=== PATIENT | female | born 1965 | race Caucasian/White ===

== ENCOUNTER 2018-03-07 10:56 | Observation (INO) | payer BC, OTHER ==
--- NOTE | 2018-03-07 11:57 | RAD ---
CHEST 1 VIEW: INDICATION: History of chest pain. IMPRESSION: No acute cardiopulmonary abnormality. The examination is unchanged from a comparison dated 07/08/2012. POS: [facility]
[2018-03-07 12:01] LABS: #Basophils 0.1 thou/uL (0.0-0.2); #Eosinphils 0.2 thou/uL (0.0-0.7); #Lymphocytes 2.9 thou/uL (1.20-3.40); #Monocytes 0.8 thou/uL (0.11-0.59); %Basophils 0.7 % (0.0-1.0); %Eosinophils 1.6 % (0.0-10.0); %Lymphocytes 29.3 % (21.0-51.0); %Monocytes 7.6 % (0.0-10.0); %Neutrophils 60.8 % (42.0-75.0); Hemoglobin 12.7 g/dL (12.0-16.0); Mean Corpuscular HGB CONC 33.3 g/dL (32.0-36.0); Mean Corpuscular Hemoglobin 31.7 pg (27.0-31.0); Mean Corpuscular Volume 95.3 fL (78.0-98.0); Mean Platelet Volume 7.4 fL (7.4-10.4); Platelet Count 293 thou/uL (130-400); RBC Distribution Width 12.4 % (11.5-14.5); Red Blood Cell (RBC) Count 3.99 mill/uL (4.20-5.40); White Blood Cell (WBC) Count 9.9 thou/uL (4.8-10.8)
[2018-03-07 12:31] LABS: ALT (SGPT) 10 U/L (8-55); AST (SGOT) 15 U/L (5-34); Albumin 4.6 g/dL (3.5-5.0); Alkaline Phosphatase 61 U/L (40-150); Anion Gap 11 mmol/L (10-20); BUN (Urea Nitrogen) 10 mg/dL (9.8-20.1); Bilirubin, Total 0.5 mg/dL (0.2-1.2); CK (CPK) 79 U/L (29-168); Calc. Creatinine Clearance 0 mL/min (70-130); Calcium 9.7 mg/dL (7.8-10.44); Carbon Dioxide 26 mmol/L (22-29); Chloride 101 mmol/L (98-107); Estimated GFR-MDRD 78; Globulin 2.4 g/dL (2.4-3.5); Glucose 86 mg/dL (70-105); Potassium 4.2 mmol/L (3.5-5.1); Sodium 134 mmol/L (136-145)
[2018-03-07] MEDS ORDERED: Nitroglycerin 2% Ointment 1 INCH/1 GM Packet ONE (12:40)
--- NOTE | 2018-03-07 15:29 | HP ---
PRIMARY CARE PHYSICIAN: [facility] Call Admission. REASON FOR ADMISSION: Chest pain. HISTORY OF PRESENT ILLNESS: A 53-year-old female, who has underlying history of coronary artery disease with a history of CABG, who presented to emergency room for complaint of chest pain. The patient reports that this morning she was experiencing crampy pressure-like sensation in her chest, which was substernal in location, radiated to left arm, associated with nausea and mild shortness of breath, lasted for about 2-3 minutes, subsided by itself, but subsequently, she was having recurrent similar type of chest discomfort, which was pretty much unusual for her. She used to get dull chest pain periodically with exertion, which subsides by itself, but this pain was little bit different from her baseline dull pain. She continued to smoke about one pack per day. She denies any palpitation, orthopnea, PND, or leg swelling. She denies any fever or chills. She denies any UTI symptoms. She denies any constipation, diarrhea, melena, or hematochezia. In the emergency room, EKG showed LBBB, which was pretty much unchanged from previous. The patient had routine blood test including cardiac enzymes that are negative. Chest x-ray was normal. The patient is being admitted for chest pain evaluation. PAST MEDICAL HISTORY: Hypertension, dyslipidemia, coronary artery disease, history of CA. PAST SURGICAL HISTORY: CABG x5, bilateral iliac bypass grafting. PAST PSYCHIATRIC HISTORY: Reviewed and negative. SOCIAL HISTORY: The patient is . She smokes about one pack per day. She denies any alcohol or other illicit drug abuse. FAMILY HISTORY: No family history of coronary artery disease, stroke, or cancer. ALLERGIES: ERYTHROMYCIN. CURRENT HOME MEDICATIONS: 1. Aspirin 81 mg daily. 2. Multivitamin one tablet daily. 3. Toprol 12.5 mg p.o. daily. 4. Imdur 60 mg daily. 5. Plavix 75 mg p.o. daily. 6. Amlodipine 2.5 mg daily. 7. Lipitor 40 mg p.o. at bedtime. 8. Calcium with vitamin D 1 tablet p.o. daily. 9. Fish oil one capsule daily. 10. Losartan 25 mg daily. EMERGENCY ROOM COURSE: The patient has received aspirin and nitroglycerin patch. REVIEW OF SYSTEMS: CONSTITUTIONAL: Negative for weight loss or gain, ability to conduct usual activities. SKIN: Negative for rash, itching. EYES: Negative for double vision, pain. ENT/MOUTH: Negative for nose bleeding, neck stiffness, pain, tenderness. CARDIOVASCULAR: Negative for palpitations, dyspnea on exertion, orthopnea. RESPIRATORY: Negative for shortness of breath, wheezing, cough, hemoptysis, fever or night sweats. GASTROINTESTINAL: Negative for poor appetite, abdominal pain, heartburn, nausea, vomiting, constipation, or diarrhea. GENITOURINARY: Negative for urgency, frequency, dysuria, nocturia. MUSCULOSKELETAL: Negative for pain, swelling. NEUROLOGIC/PSYCHIATRIC: Negative for anxiety, depression. ALLERGY/IMMUNOLOGIC: Negative for skin rash, bleeding tendency. Please see my HPI for pertinent positive and negative. All other review of systems reviewed and negative except as mentioned in HPI. PHYSICAL EXAMINATION: VITAL SIGNS: Currently, blood pressure 119/74, pulse 73, respiratory rate 16, temperature 98.6, saturation 100% on room air. Weight 61.2 kg. GENERAL: The patient is currently alert, oriented, in no acute distress. HEENT: Head normocephalic and atraumatic. Eyes: Pupils round, reactive to light. Extraocular muscle intact. ENT: Oropharynx within normal limits. Moist mucous membranes. No oral lesion. No pharyngeal erythema. No exudate. NECK: Supple. No JVD. No thyromegaly. No carotid bruit. No jugular venous distention. LUNGS: Clear to auscultation without any rhonchi or rales. CARDIAC: S1 and S2 regular without any murmur. ABDOMEN: Soft and benign without any tenderness. EXTREMITIES: No edema. NEUROLOGIC: Nonfocal examination. SIGNIFICANT LABORATORY DATA: EKG is showing LBBB. CBC: WBC 9.9, hemoglobin 12.7, platelet 293. BMP: Sodium 134, potassium 4.2, chloride 101, carbon dioxide 26, anion gap 11, BUN 10, creatinine 0.77, glucose 86, calcium 9.7. LFT: AST 15, ALT 10, alkaline phosphatase 61, albumin 4.6. Cardiac enzyme negative. BNP 125.4. ASSESSMENT AND PLAN: 1. Acute angina. The patient's description is atypical angina. Her cardiac enzymes are negative. Her EKG is showing left bundle branch block. At this point, the patient will need observation. We will do serial cardiac enzyme x3. If cardiac enzymes are negative, then this patient will need a stress test tomorrow morning for prognostic reason. We will obtain echocardiography to assess ejection fraction and other structural abnormality. We will check lipid profile tomorrow morning. Meanwhile, we will continue with aspirin 325 mg p.o. daily. If blood pressure permits, then we will continue nitroglycerin patch q.8 hourly. We will also continue amlodipine 2.5 mg p.o. daily, Lipitor 40 mg p.o. at bedtime, Plavix 75 mg p.o. daily and losartan 12.5 mg p.o. daily. We will hold Toprol-XL because we are going to do stress test tomorrow. Healthy lifestyle measure discussed with the patient. 2. Coronary artery disease with a history of coronary artery bypass graft. Currently, the patient is on medical therapy, which is pretty much optimal medical therapy with aspirin, Plavix, statin, beta-abena and ARB. 3. Cardiomyopathy. We will check echocardiography to assess ejection fraction and other structural abnormality. Currently, the patient is euvolemic. 4. Dyslipidemia. Check lipid profile tomorrow and continue Lipitor 40 mg p.o. at bedtime. 5. Tobacco abuse disorder. Smoking cessation counseling given and we will provide nicotine patch while in hospital. 6. Deep venous thrombosis prophylaxis not needed because we are expecting discharge in 24 hours. 7. Gastrointestinal prophylaxis. Pepcid 20 mg p.o. b.i.d. CODE STATUS: The patient is full code. The patient's is surrogate decision maker. DISPOSITION PLAN: Based on stress test and echocardiography result. Plan of care discussed with the patient and her at bedside in the emergency room. Job ID: [id number]
[2018-03-07] MEDS ORDERED: Calcium Carbonate 500 MG ChewTAB PO PRN (16:27)
[2018-03-07] MEDS ORDERED: Ondansetron PF 4 MG/2 ML Vial IVP PRN (16:27)
[2018-03-07] MEDS ORDERED: Cepastat Lozenges 1 LOZ PO PRN (16:27)
[2018-03-07] MEDS ORDERED: Diabetic Tussin 200 MG/10 ML UDCUP PO PRN (16:27)
[2018-03-07] MEDS ORDERED: Acetaminophen 325 MG TAB PO PRN (16:27)
[2018-03-07] MEDS ORDERED: Eucerin (Mineral Oil/Petrolatum,White) 30 gm Jar TOP PRN (16:27)
[2018-03-07] MEDS ORDERED: Bisacodyl 5 MG TAB PO PRN (16:27)
[2018-03-07] MEDS ORDERED: Zolpidem Tartrate 5 MG TAB PO PRN (16:27)
[2018-03-07] MEDS ORDERED: Loratadine 10 MG TAB PO PRN (16:27)
[2018-03-07] MEDS ORDERED: Senokot S 8.6-50 MG TAB PO PRN (16:27)
[2018-03-07] MEDS ORDERED: Artificial Tears 18 DROP/0.9 ML EA EYE PRN (16:27)
[2018-03-07] MEDS ORDERED: Bisacodyl 10 MG SUPP PR PRN (16:27)
[2018-03-07] MEDS ORDERED: HYDROcodone/Acetaminophen 5/325 mg Tablet PO PRN (16:27)
[2018-03-07] MEDS ORDERED: Ondansetron ODT 4 MG TAB PO PRN (16:27)
[2018-03-07] MEDS ORDERED: Sodium Chloride 0.65% Nasal 44 ML BOT EA NARE PRN (16:27)
[2018-03-07] MEDS ORDERED: Nitroglycerin 0.4 MG TAB (25 Tab Bottle) PO PRN (16:27)
[2018-03-07] MEDS ORDERED: Loperamide HCl 2 MG CAP PO PRN (16:27)
[2018-03-07] MEDS ORDERED: hydrALAZINE 20 MG/ML VIAL SLOW IVP PRN (16:27)
[2018-03-07 17:20] VITALS: BMI 23.9
[2018-03-07] MEDS: Calcium Carbonate + Vit D 1 TAB PO SCH (18:32)
[2018-03-07] MEDS: Atorvastatin Calcium 40 MG TAB PO SCH (20:45)
[2018-03-07] MEDS: Famotidine 20 MG TAB PO SCH (20:45)
[2018-03-07] MEDS: Nitroglycerin 2% Ointment 1 INCH/1 GM Packet TOP SCH (20:45)
[2018-03-07] MEDS ORDERED: Enoxaparin Sodium 60 MG/0.6 ML SYRINGE SC SCH (21:00)
[2018-03-08] MEDS: Nitroglycerin 2% Ointment 1 INCH/1 GM Packet TOP SCH ×3 (04:41→22:50)
[2018-03-08 05:59] LABS: Cardiac Risk 2.7 (Less than 4.5)
--- NOTE | 2018-03-08 08:34 | CON ---
DATE OF CONSULTATION: HISTORY OF PRESENT ILLNESS: The patient is a 53-year-old woman with a history of coronary artery disease, who presents with recurrent chest discomfort. The patient has a long history of coronary artery disease. In 2009, she underwent coronary artery bypass surgery. The patient had a RUFFIN placed to the LAD, saphenous vein graft to diagonal, obtuse marginal branch and to the right coronary artery. The patient subsequently underwent a followup catheterization in January 2010. She was found to have a patent graft to the RUFFIN, patent graft to the OM, an occluded diagonal graft, and a patent graft to the RCA and posterior descending artery. The patient subsequently has continued to smoke. She was followed up at [facility] for several years. She has apparently had several stents placed at that hospital. The patient most recently was seen in a clinic a few months ago with substernal chest discomfort. She was scheduled to undergo a stress test. The patient presented to the emergency room with a left-sided chest pain that radiated to her left shoulder. The patient took several nitroglycerin tablets with resolution of her chest. She reports her chest pain has been subsequently intermittent. She denies any present discomfort. PAST MEDICAL HISTORY: 1. Coronary artery disease. 2. Diabetes mellitus. 3. Hypertension. 4. Hyperlipidemia. PAST SURGICAL HISTORY: Coronary artery bypass graft surgery, status post aortobiiliac bypass in 2009. SOCIAL HISTORY: The patient continues to smoke. MEDICATIONS ON ADMISSION: Losartan 12.5 daily, Lipitor 20 at bedtime, Toprol-XL 12.5 daily, Imdur 60 q.a.m., aspirin 81 daily, Norvasc 2.5 daily, Plavix 75 daily. REVIEW OF SYSTEMS: Ten-point system otherwise unremarkable. PHYSICAL EXAMINATION: GENERAL: This is a thin woman in no acute distress. VITAL SIGNS: Blood pressure 111/75. NECK: No jugular venous distention. LUNGS: Clear to auscultation. HEART: Regular rate and rhythm. Normal S1, S2. No murmurs. ABDOMEN: Nondistended. EXTREMITIES: Showed no edema. VASCULAR: Radial pulses are 2+. LABORATORY DATA: Sodium 134, potassium 4.2, chloride 102, bicarbonate 26, BUN 10, creatinine 0.77. Troponin less than 0.01. White blood cell count 3.9, hemoglobin 12.6, hematocrit 38.0, and platelets 293. IMAGING STUDIES: EKG revealed normal sinus rhythm with left bundle-branch block. IMPRESSION: 1. Unstable angina. 2. History of coronary artery bypass graft surgery. 3. Hypertension. 4. Dyslipidemia. 5. History of aortobifemoral bypass. 6. Tobacco abuse. This patient presents with recurrent chest discomfort suggestive of angina. The patient will undergo further evaluation during this hospitalization. We will start the patient on Lovenox. We will continue the patient on higher dose Lipitor. We will follow this patient with you through her hospitalization. Job ID: [id number] MTDD
[2018-03-08] MEDS ORDERED: Communication Order-Pharmacy FS SCH (08:45)
[2018-03-08] MEDS ORDERED: Sodium Chloride 0.9% 1,000 ML IV SCH ×2 (08:45→16:49)
[2018-03-08] MEDS ORDERED: Nicotine 21 MG PATCH TD SCH (09:00)
[2018-03-08] MEDS: Aspirin 325 MG TAB PO SCH (09:16)
[2018-03-08] MEDS: Famotidine 20 MG TAB PO SCH ×2 (09:16→20:22)
[2018-03-08] MEDS: Fish Oil 1,000 MG CAP PO SCH (09:16)
[2018-03-08] MEDS: Losartan 25 MG TAB PO SCH (09:18)
[2018-03-08] MEDS: Calcium Carbonate + Vit D 1 TAB PO SCH ×2 (09:19→18:23)
[2018-03-08] MEDS: Amlodipine 5 MG TAB PO SCH (09:20)
[2018-03-08] MEDS: Clopidogrel Bisulfate 75 MG TAB PO SCH (09:21)
[2018-03-08] MEDS: Multivitamin W/ Minerals 1 TAB PO SCH (09:21)
--- NOTE | 2018-03-08 10:47 | PDOC.PN ---
- Subjective Encounter Start Date: 03/08/18 Encounter Start Time: 07:20 -: old records requested/rev Patient seen and examined. No new complaints. No overnight events - Objective Resuscitation Status - Order Detail: 03/07/18 14:11 Resuscitation Status Routine Resuscitation Status: FULL: Full Resuscitation MAR Reviewed: Yes Vital Signs & Weight: Vital Signs (12 hours) Temp Pulse Resp BP Pulse Ox 03/08/18 09:20 72 03/08/18 07:40 97.9 F 72 16 134/66 99 03/08/18 04:29 98.1 F 60 16 130/72 97 03/08/18 00:05 98.2 F 71 16 125/73 100 Weight Weight 139 lb 4.8 oz I&O: 03/07/18 03/08/18 03/09/18 06:59 06:59 06:59 Intake Total 1020 Balance 1020 Result Diagrams: 03/07/18 11:45 03/07/18 11:45 EKG Reviewed by me: Yes (nsr) Phys Exam - Physical Examination Constitutional: NAD HEENT: PERRLA, moist MMs, sclera anicteric Neck: no JVD, supple Respiratory: no wheezing, no rales, no rhonchi Cardiovascular: RRR, no significant murmur, no rub Gastrointestinal: soft, non-tender, no distention, positive bowel sounds Musculoskeletal: no edema, pulses present Neurological: non-focal, normal sensation, moves all 4 limbs Lymphatic: no nodes Psychiatric: normal affect, A&O x 3 Skin: no rash, normal turgor Dx/Plan (1) Chest pain Code(s): R07.9 - CHEST PAIN, UNSPECIFIED Status: Acute (2) CAD (coronary artery disease) Code(s): I25.10 - ATHSCL HEART DISEASE OF [place] CORONARY ARTERY W/O ANG PCTRS Status: Chronic (3) Dyslipidemia Code(s): E78.5 - HYPERLIPIDEMIA, UNSPECIFIED Status: Chronic (4) H/O cardiomyopathy Code(s): Z86.79 - PERSONAL HISTORY OF OTHER DISEASES OF THE CIRCULATORY SYSTEM Status: Chronic (5) Hypertension Code(s): I10 - ESSENTIAL (PRIMARY) HYPERTENSION Status: Chronic (6) Tobacco abuse Code(s): Z72.0 - TOBACCO USE Status: Chronic - Plan cont current plan of care * cardiac cath as per cardiology * echo done * discharge based on cath result * medication reviewed as below * symptomatic treatment. Review of Systems - Review of Systems ENT: negative: Ear Pain, Ear Discharge, Nose Pain, Nose Discharge, Nose Congestion, Mouth Pain, Mouth Swelling, Throat Pain, Throat Swelling, Other Respiratory: negative: Cough, Dry, Shortness of Breath, Hemoptysis, SOB with Excertion, Pleuritic Pain, Sputum, Wheezing Cardiovascular: negative: chest pain, palpitations, orthopnea, paroxysmal nocturnal dyspnea, edema, light headedness, other Gastrointestinal: negative: Nausea, Vomiting, Abdominal Pain, Diarrhea, Constipation, Melena, Hematochezia, Other Genitourinary: negative: Dysuria, Frequency, Incontinence, Hematuria, Retention , Other Musculoskeletal: negative: Neck Pain, Shoulder Pain, Arm Pain, Back Pain, Hand Pain, Leg Pain, Foot Pain, Other Skin: negative: Rash, Lesions, [place], Bruising, Other - Medications/Allergies Allergies/Adverse Reactions: Allergies Allergy/AdvReac Type Severity Reaction Status Date / Time erythromycin base Allergy Unknown Verified 03/07/18 16:54 [Erythromycin Base] Medications: Current Medications Acetaminophen (Tylenol) 650 mg PO Q4H PRN PRN Reason: Headache/Fever/Mild Pain (1-3) Hydrocodone Bitart/Acetaminophen ([employer] 5/325) 1 tab PO Q4H PRN PRN Reason: Moderate Pain (4-6) Albuterol/Ipratropium (Duoneb) 3 ml NEB C6CH-LE [facility] Albuterol/Ipratropium (Duoneb) 3 ml NEB ONE [facility] Stop: 03/08/18 11:00 Amlodipine Besylate (Norvasc) 2.5 mg PO DAILY [facility] Last Admin: 03/08/18 09:20 Dose: 2.5 mg Artificial Tears (Tears Naturale) 2 drop EA EYE PRN PRN PRN Reason: Dry Eyes Aspirin (Aspirin) 81 mg PO DAILY [facility] Last Admin: 03/08/18 09:16 Dose: 81 mg Atorvastatin Calcium (Lipitor) 40 mg PO HS [facility] Last Admin: 03/07/18 20:45 Dose: 40 mg Bisacodyl (Dulcolax) 10 mg [place] DAILYPRN PRN PRN Reason: Constipation Bisacodyl (Dulcolax) 10 mg PO DAILYPRN PRN PRN Reason: Constipation Calcium Carbonate (Tums) 1,000 mg PO Q4H PRN PRN Reason: Heartburn or Indigestion Calcium/Vitamin D (Caltrate 600 + Vit D) 1 tab PO BID-[facility] Last Admin: 03/08/18 09:19 Dose: 1 tab Clopidogrel Bisulfate (Plavix) 75 mg PO DAILY [facility] Last Admin: 03/08/18 09:21 Dose: 75 mg Famotidine (Pepcid) 20 mg PO BID [facility] Last Admin: 03/08/18 09:16 Dose: Not Given Fish Oil (Fish Oil) 1,000 mg PO DAILY [facility] Last Admin: 03/08/18 09:16 Dose: 1,000 mg Guaifenesin (Robitussin Sf) 200 mg PO Q4H PRN PRN Reason: Cough Hydralazine HCl (Apresoline) 10 mg SLOW IVP Q4H PRN PRN Reason: SBP > 180 and HR < 70 Sodium Chloride (Normal Saline 0.9%) 1,000 mls @ 100 mls/hr IV .Q10H [facility] Iron/Minerals/Multivitamins (Theragran M) 1 tab PO DAILY [facility] Last Admin: 03/08/18 09:21 Dose: 1 tab Loperamide HCl (Imodium) 2 mg PO PRN PRN PRN Reason: Diarrhea/Loose Stools Loratadine (Claritin) 10 mg PO DAILYPRN PRN PRN Reason: Sinus Symptoms Losartan Potassium (Cozaar) 12.5 mg PO DAILY [facility] Last Admin: 03/08/18 09:18 Dose: 12.5 mg Mineral Oil/White Petrolatum (Eucerin Cream) 0 gm TOP BIDPRN PRN PRN Reason: Dry Skin Miscellaneous Information (Communication Order-Pharmacy) 0 each FS ONE [facility] Stop: 03/08/18 21:00 Nicotine (Nicoderm Patch) 21 mg TD DAILY [facility] Last Admin: 03/08/18 09:22 Dose: Not Given Nitroglycerin (Nitrostat) 0.4 mg PO Q5MIN PRN PRN Reason: Chest Pain Nitroglycerin (Nitro-Bid 2% Ointment) 0.5 inch TOP Q8HR [facility] Last Admin: 03/08/18 04:41 Dose: Not Given Ondansetron HCl (Zofran Odt) 4 mg PO Q6H PRN PRN Reason: Nausea/Vomiting Ondansetron HCl (Zofran) 4 mg IVP Q6H PRN PRN Reason: Nausea/Vomiting Senna/Docusate Sodium (Senokot S) 2 tab PO BID PRN PRN Reason: Constipation Sodium Chloride ([place] Nasal [place] 0.65%) 0 ml EA NARE QIDPRN PRN PRN Reason: Nasal Congestion Throat Lozenges (Cepastat Lozenges) 1 shireen PO Q2H PRN PRN Reason: Sore Throat Zolpidem Tartrate (Ambien) 5 mg PO HSPRN PRN PRN Reason: Insomnia
[2018-03-08] MEDS ORDERED: Iopamidol 370 76% 100 ML VIAL ONE (13:20)
[2018-03-08] MEDS ORDERED: Heparin 10,000 UNITS/1 ML VIAL ONE (14:39)
[2018-03-08] MEDS ORDERED: Fentanyl 100 MCG/2 ML VIAL ONE (15:45)
[2018-03-08] MEDS ORDERED: Midazolam HCl 2 mg/2 ml Vial ONE (15:46)
[2018-03-08] MEDS ORDERED: Nitroglycerin 100MG/250ML BOT 250 ML ONE (16:11)
[2018-03-08] MEDS ORDERED: Protamine Sulfate 50 MG/5 ML VIAL ONE (16:27)
[2018-03-08] MEDS ORDERED: traMADol HCl 50 MG TAB PO PRN (16:47)
[2018-03-08] MEDS ORDERED: Nitroglycerin 0.4 MG TAB (25 Tab Bottle) SL PRN (16:47)
[2018-03-08] MEDS ORDERED: Acetaminophen/Codeine 30-300mg Tablet PO PRN ×2 (16:47)
[2018-03-08] MEDS ORDERED: Sodium Chloride 0.9% 200 ML IV SCH (17:00)
[2018-03-08] MEDS: Atorvastatin Calcium 40 MG TAB PO SCH (20:18)
[2018-03-09 04:16] VITALS: TEMP 98.5
[2018-03-09] MEDS: Nitroglycerin 2% Ointment 1 INCH/1 GM Packet TOP SCH (06:55)
[2018-03-09 07:53] VITALS: BP 122/66
[2018-03-09] MEDS: Losartan 25 MG TAB PO SCH (07:57)
[2018-03-09] MEDS: Fish Oil 1,000 MG CAP PO SCH (07:57)
[2018-03-09] MEDS: Famotidine 20 MG TAB PO SCH (07:58)
[2018-03-09] MEDS: Amlodipine 5 MG TAB PO SCH (07:58)
[2018-03-09] MEDS: Multivitamin W/ Minerals 1 TAB PO SCH (07:58)
[2018-03-09] MEDS: Calcium Carbonate + Vit D 1 TAB PO SCH (07:58)
[2018-03-09] MEDS: Aspirin 325 MG TAB PO SCH (07:58)
[2018-03-09] MEDS: Clopidogrel Bisulfate 75 MG TAB PO SCH (07:58)
--- NOTE | 2018-03-09 10:30 | PDOC.CTH ---
Cardiology Progress Note - Subjective No overnight events. Pain free. - Objective Vital Signs Temp Pulse Resp BP Pulse Ox 03/09/18 07:24 98 03/09/18 07:21 117 H 16 03/09/18 07:20 98.5 F 92 20 122/66 96 03/09/18 04:13 98.5 F 79 18 122/60 100 03/09/18 00:35 83 12 96 03/08/18 23:14 98.3 F 80 18 138/65 96 Weight 143 lb 14.4 oz 03/08/18 03/09/18 03/10/18 06:59 06:59 06:59 Intake Total 1020 810 Balance 1020 810 - Physical Examination General/Neuro: alert & oriented x3 Neck: no JVD present Lungs: CTA Abdomen: NT/ND - Telemetry Telemetry Rhythm: SR - Labs Result Diagrams: 03/07/18 11:45 03/07/18 11:45 Troponin/CKMB Troponin I Less than 0.010 ng/mL (< 0.028) 03/07/18 17:35 - Assessment/Plan 1. CAD s/p CABG and graft failure 2. Tobacco Abuse Pain free overnight. Cath with stable findings as compared to 2015. Discussed smoking cessation. Add Ranexa 500mg BID per Dr. Colon. F/U in 2-3 weeks as outpatient.
--- NOTE | 2018-03-09 10:56 | DIS ---
DATE OF ADMISSION: 03/07/2018 DATE OF DISCHARGE: 03/09/2018 PRIMARY CARE PHYSICIAN: [facility] Call admission. DISCHARGE DISPOSITION: Home. PRIMARY DISCHARGE DIAGNOSIS: Unstable angina. SECONDARY DISCHARGE DIAGNOSES: Coronary artery disease, dyslipidemia, cardiomyopathy, hypertension, tobacco abuse disorder. PRIMARY PROCEDURE/OPERATION: Cardiac catheterization was performed by Dr. Colon. The patient does have [place] three-vessel coronary artery disease. She has patent LAD stent, 2/4 bypass grafts were patent, good ventricular function noted. SIGNIFICANT LABORATORY DATA: WBC 9.9, hemoglobin 12.7, platelet 293. Sodium 134, potassium 4.2, BUN 10, creatinine 0.77. LFT normal. Cardiac enzyme negative. LDL 87. DISCHARGE MEDICATIONS: 1. Amlodipine 2.5 mg daily. 2. Aspirin 81 mg p.o. daily. 3. Lipitor 20 mg p.o. daily. 4. Calcium with vitamin D one tablet p.o. daily. 5. Plavix 75 mg p.o. daily. 6. Coenzyme Q10 one tablet daily. 7. Imdur 60 mg daily. 8. Losartan 12.5 mg daily. 9. Toprol-XL 12.5 mg daily. 10. Multivitamin one tablet daily. 11. Ranexa 500 mg p.o. b.i.d. CONTRAINDICATION: None. CODE STATUS: Full code. 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 Colon was following while in hospital. TEST RESULT PENDING ON DISCHARGE: None. ALLERGIES: ERYTHROMYCIN. DISCHARGE PLAN: Posthospital, the patient will follow up with primary care physician, Dr. Colon as instructed. HOSPITAL COURSE: A 53-year-old female with above-mentioned medical problem, who was having recurrent anginal pain at home on the day of admission. Her electrocardiogram was unremarkable. Her chest x-ray was normal. Her routine blood test including cardiac enzymes was negative. The patient was admitted to observation floor. Cardiology was consulted from the emergency room. Cardiology decided to do cardiac cath. The patient was found with a 2/4 patent graft and she has underlying [place] coronary artery disease and a patent LAD stent. During this admission, she was treated medically including the Lovenox. Subsequently on discharge, we added Ranexa medication, prescription for Ranexa sent to the pharmacy. I have seen and examined this patient at bedside today, plan of care discussed with her in detail. The patient's review of systems reviewed and negative. PHYSICAL EXAMINATION: VITAL SIGNS: Currently temperature 98.5, pulse 92, respiratory rate 20, saturation 96%, blood pressure 122/66. Weight 143 pounds. GENERAL: The patient is alert, oriented, in no acute distress. HEENT: Head; normocephalic, atraumatic. Eyes; pupils round, reactive to light. Extraocular muscle intact. LUNGS: Clear to auscultation without any rhonchi or rales. CARDIAC: S1, S2. Regular without any murmur. ABDOMEN: Soft and benign. EXTREMITIES: No edema. NEUROLOGIC: Nonfocal examination. The patient is medically stable for discharge today. Job ID: [id number]
== END 2018-03-09 11:02 | disposition home or self-care (01) ==
LOC: ERS 10:56 → 2SW 16:08
PROVIDERS: ADMIT Internal Medicine; ATTEND Internal Medicine
PROC: 4A023N7 Measurement of Cardiac Sampling and Pressure, Left Heart, Percutaneous Approach (ICD-10-PCS; principal; 2018-03-08)
PROC: B2111ZZ Fluoroscopy of Multiple Coronary Arteries using Low Osmolar Contrast (ICD-10-PCS; 2018-03-08)
PROC: B2131ZZ Fluoroscopy of Multiple Coronary Artery Bypass Grafts using Low Osmolar Contrast (ICD-10-PCS; 2018-03-08)
DX: I25.110 Atherosclerotic heart disease of native coronary artery with unstable angina pectoris (principal); I25.710 Atherosclerosis of autologous vein coronary artery bypass graft(s) with unstable angina pectoris; I25.82 Chronic total occlusion of coronary artery; F17.210 Nicotine dependence, cigarettes, uncomplicated; I42.9 Cardiomyopathy, unspecified; E78.5 Hyperlipidemia, unspecified; I25.2 Old myocardial infarction; E11.9 Type 2 diabetes mellitus without complications; I10 Essential (primary) hypertension; Z79.82 Long term (current) use of aspirin; Z79.02 Long term (current) use of antithrombotics/antiplatelets; Z79.899 Other long term (current) drug therapy; Z88.8 Allergy status to other drugs, medicaments and biological substances; Z95.1 Presence of aortocoronary bypass graft; Z95.820 Peripheral vascular angioplasty status with implants and grafts
CPT/HCPCS: 36415; 71045; 80053; 80061; 82550; 83880; 84443; 84484; 85025; 85347; 93005; 93306; 93458; 94640; 96360; 96361; 96372; 99152; 99153; C1769; G0378; J1644; J1650; J2250; J2720; J3010; J7620; Q9967

== ENCOUNTER 2020-04-02 09:16 | Outpatient (CLI) | payer OTHER ==
--- NOTE | 2020-04-02 11:19 | RAD ---
CHEST 2 VIEWS: HISTORY: Cardiomyopathy. COMPARISON: Radiograph 03/07/2018. FINDINGS: Heart size is similar. There is a new 3-lead AICD/pacer with the tips projecting in the right atrial appendage, right ventricle, and coronary sinus. Pneumothorax but no effusion. IMPRESSION: New automatic implantable cardioverter/defibrillator/pacer placement without complication. POS: [facility]
== END 2020-04-02 09:17 | disposition home or self-care (01) ==
LOC: BICRAD 09:16
PROVIDERS: ATTEND Internal Medicine Cardiovascular Disease
DX: I50.22 Chronic systolic (congestive) heart failure (principal)
CPT/HCPCS: 71046

== ENCOUNTER 2021-08-05 14:46 | Outpatient (CLI) | payer OTHER | END 2021-08-05 14:47 | disposition home or self-care (01) | LOC: ULT 14:46 | PROVIDERS: ATTEND Family Medicine | DX: I73.9 Peripheral vascular disease, unspecified (principal) | CPT/HCPCS: 93923 ==

== ENCOUNTER 2022-08-09 13:34 | Outpatient (CLI) | payer OTHER | END 2022-08-09 13:35 | disposition home or self-care (01) | LOC: ULT 13:34 | PROVIDERS: ATTEND Internal Medicine | DX: I25.10 Atherosclerotic heart disease of native coronary artery without angina pectoris (principal); I50.40 Unspecified combined systolic (congestive) and diastolic (congestive) heart failure | CPT/HCPCS: 93306 ==

== ENCOUNTER 2022-09-28 11:01 | Outpatient (CLI) | payer OTHER | END 2022-09-28 11:02 | disposition home or self-care (01) | LOC: BICMAMMO 11:01 | PROVIDERS: ATTEND Family Medicine | DX: Z12.31 Encounter for screening mammogram for malignant neoplasm of breast (principal) | CPT/HCPCS: 77063; 77067 ==

== ENCOUNTER 2023-04-18 23:08 | Inpatient (IN) | payer OTHER ==
[~2023-04-18 23:08] MED LIST: Iopamidol 370 76% 100 ML VIAL ONE
[2023-04-18] MEDS ORDERED: Morphine 4 MG/ML VIAL ONE (23:16)
[2023-04-18] MEDS ORDERED: Ondansetron PF 4 MG/2 ML Vial ONE (23:20)
[2023-04-18 23:31] LABS: #Basophils 0.1 thou/uL (0.0-0.2); #Eosinphils 0.2 thou/uL (0.0-0.7); #Neutrophils 7.8 thou/uL (1.40-6.50); %Basophils 0.4 % (0.0-1.0); %Eosinophils 1.6 % (0.0-10.0); %Lymphocytes 29.1 % (21.0-51.0); %Monocytes 7.6 % (0.0-10.0); Hematocrit 37.6 % (36.0-47.0); Hemoglobin 13.4 g/dL (12.0-16.0); Mean Corpuscular HGB CONC 35.6 g/dL (32.0-36.0); Mean Corpuscular Hemoglobin 31.7 pg (27.0-31.0); Mean Corpuscular Volume 88.9 fl (78.0-98.0); Mean Platelet Volume 10.4 fL (7.4-10.4); Platelet Count 241 10x3/uL (130-400); RBC Distribution Width 13.7 % (11.5-14.5); Red Blood Cell (RBC) Count 4.23 mill/uL (4.20-5.40); White Blood Cell (WBC) Count 12.7 10x3/uL (4.8-10.8)
[2023-04-18] MEDS ORDERED: Nitroglycerin 50 MG/250 ML BOT 250 ML ONE (23:34)
[2023-04-18 23:47] LABS: Prothrombin Time 12.9 sec (12.0-14.7)
[2023-04-19 00:30] LABS: ALT (SGPT) 15 U/L (8-55); AST (SGOT) 21 U/L (5-34); Albumin 4.5 g/dL (3.5-5.0); Alkaline Phosphatase 72 U/L (40-110); Anion Gap 19 mmol/L (10-20); BUN (Urea Nitrogen) 11 mg/dL (9.8-20.1); Bilirubin, Total 0.5 mg/dL (0.2-1.2); Calc. Creatinine Clearance 0 mL/min (70-130); Calcium 9.8 mg/dL (7.8-10.44); Carbon Dioxide 23 mmol/L (22-29); Chloride 99 mmol/L (98-107); Estimated GFR 56; Globulin 2.6 g/dL (2.4-3.5); Glucose 108 mg/dL (70-105); Lipase 18 U/L (8-78); Magnesium 2.8 mg/dL (1.6-2.6); Potassium 3.9 mmol/L (3.5-5.1); Protein, Total 7.1 g/dL (6.0-8.3); Sodium 137 mmol/L (136-145)
[2023-04-19 00:33] LABS: Troponin I Less than 0.010 ng/mL (< 0.028)
[2023-04-19] MEDS ORDERED: Ondansetron PF 4 MG/2 ML Vial ONE (00:37)
[2023-04-19] MEDS ORDERED: Morphine 4 MG/ML VIAL ONE (03:08)
[2023-04-19] MEDS ORDERED: Metoclopramide HCl 10 MG (2 mL) VIAL ONE (03:09)
[2023-04-19 03:26] LABS: Free T4 (Free Thyroxine) 1.18 ng/dL (0.70-1.48)
[2023-04-19] MEDS ORDERED: Ondansetron PF 4 MG/2 ML Vial IVP PRN (04:12)
[2023-04-19] MEDS ORDERED: Acetaminophen 325 MG TAB PO PRN (04:12)
[2023-04-19] MEDS ORDERED: Heparin 10,000 UNITS/ 10 ML VIAL SLOW IVP SCH (04:30)
[2023-04-19] MEDS ORDERED: Heparin 25,000 units/D5W 500 ML IVPB SCH (04:30)
[2023-04-19] MEDS ORDERED: Nitroglycerin 50 MG/250 ML BOT 250 ML IVPB SCH (04:30)
[2023-04-19] MEDS ORDERED: Ketorolac Tromethamine 30 MG (1 mL) VIAL IVP SCH (04:45)
[2023-04-19] MEDS ORDERED: Albuterol 200 PUFF (6.7GM INHALER) INH PRN (04:50)
[2023-04-19] MEDS ORDERED: Loratadine/Pseudoephedrine 10/240 mg Tablet PO PRN (04:51)
[2023-04-19 05:21] VITALS: BMI 26.8
[2023-04-19] MEDS ORDERED: Morphine 2 MG/ML VIAL ONE (05:38)
[2023-04-19 05:43] LABS: Hematocrit 35.5 % (36.0-47.0); Hemoglobin 12.2 g/dL (12.0-16.0); Platelet Count 221 10x3/uL (130-400)
[2023-04-19] MEDS: Morphine 2 MG/ML VIAL SLOW IVP SCH (05:44)
[2023-04-19 06:06] LABS: Phosphorus 4.6 mg/dL (2.3-4.7)
[2023-04-19 06:13] LABS: Troponin I Less than 0.010 ng/mL (< 0.028)
[2023-04-19 07:38] LABS: Bacteria/HPF None Seen HPF (None Seen); Bilirubin Negative (Negative); Blood, Urine Negative (Negative); CAUTI Indications for Culture Pelvic or flank pain; Clarity Clear (Clear); Glucose, Urine (Dipstick) Greater than 1000 mg/dL (Negative); Ketone, Urine Trace mg/dL (Negative); Leukocyte Negative Leu/uL (Negative); Nitrite Negative (Negative); Protein, Urine (Dipstick) Negative (Neg-Trace); RBC/HPF 0-3 HPF (0-3); Specific Gravity, Urine 1.038 (1.002-1.036); Squamous Epithelial 0-3 HPF (0-3); Urobilinogen Normal mg/dL (Less than 2); WBC/HPF 0-3 HPF (0-3); pH, Urine 7.5 (5.0-9.0)
[2023-04-19 07:40] LABS: Urine Culture Reflex No No
[2023-04-19 07:41] LABS: Troponin I Less than 0.010 ng/mL (< 0.028)
[2023-04-19] MEDS: Mometasone 100 MCG/Formoterol 5 MCG 120 PUFF INHALER INH SCH (08:40)
[2023-04-19] MEDS ORDERED: MD-Gastroview 120 ML BOT ONE (08:48)
[2023-04-19] MEDS ORDERED: Ezetimibe 10 MG TAB PO SCH (09:00)
[2023-04-19] MEDS: Lactated Ringer's 1,000 ML IV SCH (09:27)
[2023-04-19] MEDS ORDERED: Aspirin Chewable 81 MG TAB ONE ×2 (10:35→14:43)
[2023-04-19] MEDS ORDERED: Clopidogrel Bisulfate 75 MG TAB ONE ×2 (10:35→14:43)
[2023-04-19] MEDS ORDERED: Famotidine/PF 20 mg/2ml Vial ONE (10:35)
[2023-04-19] MEDS ORDERED: Multivit, Therapeutic 1 TAB ONE ×2 (10:35→14:43)
[2023-04-19] MEDS: Famotidine/PF 20 mg/2ml Vial SLOW IVP SCH (12:49)
[2023-04-19] MEDS ORDERED: Polyethylene Glycol 3350 17 GM Packet ONE (14:45)
[2023-04-19] MEDS: Ranolazine ER 500 MG TAB PO SCH (15:09)
[2023-04-19] MEDS: BuPROPion XL 150 MG ER.TAB PO SCH (15:09)
[2023-04-19] MEDS: Sacubitril 24MG/Valsartan 26 MG TAB PO SCH (15:09)
[2023-04-19] MEDS: Rosuvastatin 20 MG TAB PO SCH (15:09)
[2023-04-19] MEDS: Polyethylene Glycol 3350 17 GM Packet PO SCH (15:09)
[2023-04-19] MEDS: Multivit, Therapeutic 1 TAB PO SCH (15:09)
[2023-04-19] MEDS: Bumetanide 1 MG TAB PO SCH (15:10)
[2023-04-19] MEDS: Aspirin Chewable 81 MG TAB PO SCH (15:11)
[2023-04-19] MEDS: Nicotine 21 MG PATCH TD SCH (15:11)
[2023-04-19] MEDS: Clopidogrel Bisulfate 75 MG TAB PO SCH (15:11)
[2023-04-19 15:47] VITALS: BP 105/68; TEMP 97.7
[2023-04-20] MEDS ORDERED: Famotidine/PF 20 mg/2ml Vial SLOW IVP SCH (09:00)
== END 2023-04-19 16:30 | disposition home or self-care (01) | DRG 388 ==
LOC: ERS 23:08 → ERHOLD 04-19 04:20
PROVIDERS: ADMIT Student in an Organized Health Care Education/Training Program; ATTEND Student in an Organized Health Care Education/Training Program
PROC: 0D9670Z Drainage of Stomach with Drainage Device, Via Natural or Artificial Opening (ICD-10-PCS; principal; 2023-04-19)
DX: K56.609 Unspecified intestinal obstruction, unspecified as to partial versus complete obstruction (principal); I21.4 Non-ST elevation (NSTEMI) myocardial infarction; I25.110 Atherosclerotic heart disease of native coronary artery with unstable angina pectoris; I73.9 Peripheral vascular disease, unspecified; E78.5 Hyperlipidemia, unspecified; K21.9 Gastro-esophageal reflux disease without esophagitis; J44.9 Chronic obstructive pulmonary disease, unspecified; F17.210 Nicotine dependence, cigarettes, uncomplicated; I10 Essential (primary) hypertension; K59.00 Constipation, unspecified; E03.8 Other specified hypothyroidism; F32.A Depression, unspecified; Z88.1 Allergy status to other antibiotic agents; Z79.82 Long term (current) use of aspirin; Z79.899 Other long term (current) drug therapy; Z95.1 Presence of aortocoronary bypass graft; Z98.891 History of uterine scar from previous surgery; Z82.49 Family history of ischemic heart disease and other diseases of the circulatory system; Z95.0 Presence of cardiac pacemaker
CPT/HCPCS: 36415; 71045; 71275; 74018; 74019; 74174; 74177; 74250; 80053; 81001; 83605; 83690; 83735; 83880; 84100; 84439; 84443; 84481; 84484; 85014; 85018; 85025; 85049; 85610; 85730; 93005; J2270; J2272; J2405; J2765; J7120; Q9963; Q9967; S0028